=== PATIENT | male | born 1950 | race Caucasian/White ===

== ENCOUNTER 2019-01-15 08:04 | Outpatient (RCR) | payer MEDICARE, OTHER ==
[~2019-01-15 08:04] MED LIST: TAMS0.4C70 PO
--- NOTE | 2019-01-18 16:26 | RADIOLOGY IMAGING REPORT ---
FACILITY: [facility] PATIENT NAME: Sancho Lam : 1950 MR: [id number] V: [id number] EXAM DATE: ORDERING PHYSICIAN: JORGE COLON TECHNOLOGIST: Location: [facility] Patient: Sancho Lam : 1950 Visit/Account:[id number] Date of Sevice: 01/18/2019 CT ABDOMEN WITH IV CONTRAST CLINICAL INFORMATION: 3-6 month follow-up of liver lesions TECHNIQUE: Axial CT images were obtained through the abdomen during injection of nonionic iodinated intravenous contrast. Imaging was performed in the arterial phase, portal venous phase and delayed phases following the contrast demonstration. Reformatted coronal and sagittal images were also obtain ed.Dose Lowering Technique One of the following dose optimization techniques was utilized in the performance of this exam: Autom ated exposure control; adjustment of the mA and/or kV according to the patient's size; or use of an i terative reconstruction technique. Specific details can be referenced in the facility's radiology C T exam operational policy. CONTRAST: 75 mL of Isovue 370 IV contrast. COMPARISON: October 15, 2018. FINDINGS: Lower lung baldwin: 9 mm calcified nodule in the left lower lobe again seen Liver: The previously noted 7.4 mm vague area of arterial enhancement in the posterior left lobe is n o longer seen and may have represented a perfusional variant The lateral superior right lobe the previously noted 1.4 x 1.3 cm hypoattenuating region which is bes t appreciated on the portal venous phase appears unchanged and is identified on image 25 of series 8 The previously noted 9 x 3 mm focal area of arterial enhancement along the posterior lateral superior aspect right lobe is no longer seen and may represent a perfusional variant In the posterior right lobe the previously noted area of anterior enhancement is now much more conspi cuous and measures approximately 3 x 1.3 x 1.8 cm. This is best appreciated on image 26 of series 4. This becomes isodense on the portal venous and delayed images. Previously noted 7 mm area of decreased attenuation lateral aspect the right lobe best appreciated on the portal venous phase images remains unchanged and is best identified image 31 of series 8 Biliary: Cholelithiasis although no evidence of biliary ductal dilatation Pancreas: The pancreatic duct appears ectatic in the pancreatic head although appears similar to the prior study Spleen: Normal appearance. Adrenal glands: Unremarkable. Kidneys / retroperitoneum: 1.4 cm upper pole left renal cyst Bowel / peritoneum / mesenteries: The visualized small and large bowel appear unremarkable. Lymph node assessment: No pathologic adenopathy identified. Vessels: There mild atherosclerotic calcifications of the abdominal aorta and branch vessels atherosc lerotic calcification seen throughout a nonaneurysmal abdominal aorta and branches. Musculoskeletal / Body wall: Schmorl's nodes again noted in the visualized thoracolumbar spine IMPRESSION: 1. Some of the areas of focal arterial enhancement identified on the prior study are no longer seen and may have represented perfusional variants... There is a large area of irregular arterial enhancement in the right lobe which is increased when com pared to the prior study and becomes isodense on the portal venous and delayed phase images. This co uld possibly represent a perfusional variant given the above findings. This may be more prominent du e to slight difference in timing of the contrast bolus. The previously noted areas of decreased attenuation in the right lobe the liver on the portal venou s phase appear unchanged. The pancreatic duct appears ectatic the pancreatic head although similar to the prior study. Period Further evaluation of above findings with MR of the abdomen with and without contrast recommended if the patient is able to have an MR. If not correlation with ultrasound may be helpful. Report Dictated By: Melissa Anaya MD at 01/19/20 9 12:06 PM Report E-Signed By: Melissa Anaya MD at 01/18/2019 4:21 PM WSN:[id number]
== END 2019-01-18 18:00 | disposition home or self-care (01) ==
LOC: CT 08:04 → EDSTATUS 01-18 08:02 → CT 01-18 18:00
PROVIDERS: ATTEND Family Medicine
DX: R93.2 Abnormal findings on diagnostic imaging of liver and biliary tract (principal)
CPT/HCPCS: 36415; 74160; 82565; Q9967